=== PATIENT | female | born 1965 | race Caucasian/White ===

== ENCOUNTER 2025-01-17 01:20 | Inpatient (IN) | payer BC ==
[~2025-01-17] VITALS: Ht 154.9 cm; Wt 63.5 kg
[2025-01-17 01:57] LABS: BASO # 0.1 10^3/uL (0.0-0.2); BASO % 0.6 % (0.0-1.0); EOS # 0.0 10^3/uL (0.0-0.5); EOS % 0.1 % (0.0-3.0); LYMPH # 0.7 10^3/uL (1.5-5.0); LYMPH % 9.1 % (24.0-44.0); MONO # 0.8 10^3/uL (0.0-0.8); MONO % 10.3 % (2.0-8.0); NEUTROPHILS # 6.4 10^3/uL (1.5-8.5); NEUTROPHILS % 79.3 % (36.0-66.0); PLATELET COUNT, AUTOMATED 160 10^3/uL (150-450)
[2025-01-17 02:24] LABS: CPK CREATINE PHOSPHOKINASE 757.0 U/L (34-145)
[2025-01-17 02:25] LABS: ALT/SGPT 33.0 U/L (7.0-40); AST/SGOT 101.0 U/L (<34); CALCIUM LEVEL 9.9 MG/DL (8.3-10.6); CARBON DIOXIDE LEVEL 16.0 MMOL/L (20-31); CHLORIDE LEVEL 96.0 MMOL/L (98-107); CK-MB VALUE MASS 10.4 NG/ML (<3.6); CREATININE FOR GFR 0.84 MG/DL (0.55-1.30); GLOMERULAR FILTRATION RATE 79.0 (>45); MAGNESIUM LEVEL 1.2 MG/DL (1.8-2.4); MB/CK RELATIVE INDEX 1.37 (< OR =4); POTASSIUM SERUM 3.6 MMOL/L (3.5-5.1); SODIUM LEVEL 137.0 MMOL/L (136-145)
[2025-01-17] MEDS ORDERED: chlordiazePOXIDE 25 MG CAP PO SCH (02:30)
[2025-01-17] MEDS: MAGNESIUM SULFATE IN WATER 2 GM in IV 1 EA IV STA (03:02)
[2025-01-17] MEDS: OXAZEPAM 10MG CAP PO ONE (03:02)
[2025-01-17] MEDS: NS (Normal Saline) 0.9% 1,000 ML IV ONE (03:03)
[2025-01-17] MEDS: KCL 20MEQ IN D5/NS 1000ML 1,000 ML IV SCH (05:01)
[2025-01-17] MEDS: CIPROFLOXACIN 0.3% OPHTH SOLN 2.5 ML OU ONE (05:21)
[2025-01-17 05:22] LABS: ETHYL ALCOHOL (ETHANOL) < 0.003 % (0.000-0.010); MAGNESIUM LEVEL 1.9 MG/DL (1.8-2.4)
[2025-01-17] MEDS: MAG SULF 1GM/100ML (MAG RUN) 1 GM in IV 1 EA IV ONE (06:11)
[2025-01-17 06:17] LABS: ACETONE/KETONE > 4.50 MMOL/L (0.02-0.27)
[2025-01-17 06:31] LABS: INR 1.17
[2025-01-17] MEDS ORDERED: HOME MED LIST COMPLETE! XX SCH (07:50)
[2025-01-17 08:00] VITALS: BP 89/52; TEMP 97.7; O2SAT 98
[2025-01-17 08:34] LABS: VITAMIN B12 LEVEL 770 PG/ML (211-911)
[2025-01-17] MEDS ORDERED: THIAMINE 100 MG TAB PO SCH (09:00)
[2025-01-17 09:37] LABS: PHOSPHORUS LEVEL 3.4 MG/DL (2.4-5.1)
[2025-01-17 09:42] LABS: CALCIUM LEVEL 8.2 MG/DL (8.3-10.6); CARBON DIOXIDE LEVEL 22 MMOL/L (20-31); CHLORIDE LEVEL 101 MMOL/L (98-107); CREATININE FOR GFR 0.62 MG/DL (0.55-1.30); GLOMERULAR FILTRATION RATE > 90.0 (>45); POTASSIUM SERUM 3.3 MMOL/L (3.5-5.1); SODIUM LEVEL 137 MMOL/L (136-145)
[2025-01-17] MEDS: MULTIVITAMINS/MINERALS THERAP 1 TAB PO SCH (09:55)
[2025-01-17] MEDS: FOLIC ACID 1 MG TAB PO SCH (09:56)
[2025-01-17] MEDS: OXAZEPAM 15MG CAP PO SCH (10:14)
[2025-01-17 10:42] LABS: ANTI-STREPTOLYSIN O QUANT 122.2 IU/ML (<195)
[2025-01-17] MEDS: CIPROFLOXACIN 0.3% OPHTH SOLN 2.5 ML OU SCH (10:42)
[2025-01-17 12:04] VITALS: BP 127/69; TEMP 97.7; O2SAT 100
[2025-01-17 12:15] LABS: C REACTIVE PROTEIN QUANTITATIV 0.84 MG/DL (<1.0); CALCIUM LEVEL 8.5 MG/DL (8.3-10.6); CARBON DIOXIDE LEVEL 21 MMOL/L (20-31); CHLORIDE LEVEL 103 MMOL/L (98-107); CREATININE FOR GFR 0.62 MG/DL (0.55-1.30); GLOMERULAR FILTRATION RATE > 90.0 (>45); MAGNESIUM LEVEL 2.0 MG/DL (1.8-2.4); POTASSIUM SERUM 3.3 MMOL/L (3.5-5.1); SODIUM LEVEL 138 MMOL/L (136-145)
[2025-01-17] MEDS: THIAMINE INJection 500 MG in NS 100 ML IV SCH (12:38)
[2025-01-17] MEDS ORDERED: KCL 10MEQ/100ML SWI (KRUN) 10 MEQ in IV 1 EA IV ONE (14:00)
[2025-01-17 15:01] LABS: ALT/SGPT 26 U/L (7.0-40); AST/SGOT 74 U/L (<34); CALCIUM LEVEL 7.9 MG/DL (8.3-10.6); CARBON DIOXIDE LEVEL 23 MMOL/L (20-31); CHLORIDE LEVEL 104 MMOL/L (98-107); CREATININE FOR GFR 0.53 MG/DL (0.55-1.30); GLOMERULAR FILTRATION RATE > 90.0 (>45); MAGNESIUM LEVEL 1.8 MG/DL (1.8-2.4); POTASSIUM SERUM 3.0 MMOL/L (3.5-5.1); SODIUM LEVEL 140 MMOL/L (136-145)
[2025-01-17 15:28] LABS: KETONE, URINE AUTO RFX 1+ mg/dL (NEGATIVE); MUCUS, URINE RFX SMALL (NEGATIVE); RBC, URINE AUTO RFX 0 /HPF (0-3); SQUAM EPITHELIAL CELL UR AURFX 1 /HPF (0-6); WBC, URINE AUTO RFX 2 /HPF (0-3)
[2025-01-17 15:30] LABS: LEUKOCYTE ESTERASE UR AUTO RFX TRACE (NEGATIVE); NITRITE, URINE AUTO RFX POSITIVE (NEGATIVE)
[2025-01-17] MEDS: LR 1,000 ML IV SCH (15:41)
[2025-01-17 15:44] LABS: AMPHETAMINES LEVEL URINE NEGATIVE (NEGATIVE); BARBITURATES URINE NEGATIVE (NEGATIVE)
[2025-01-17 15:45] LABS: CANNABINOIDS URINE NEGATIVE (NEGATIVE); COCAINE METABOLITE URINE NEGATIVE (NEGATIVE); METHADONE URINE NEGATIVE (NEGATIVE); OPIATES URINE NEGATIVE (NEGATIVE); PHENCYCLIDINE URINE NEGATIVE (NEGATIVE)
[2025-01-17 15:47] LABS: BENZODIAZEPINES URINE POSITIVE (NEGATIVE)
[2025-01-17 17:00] VITALS: BP 121/66; TEMP 98; O2SAT 100
[2025-01-17] MEDS: POTASSIUM CHLORIDE 10% LIQ 20MEQ/15ML UDC PO ONE (17:17)
[2025-01-18 07:29] LABS: PLATELET COUNT, AUTOMATED 115 10^3/uL (150-450)
[2025-01-18 07:43] LABS: ALT/SGPT 28 U/L (7.0-40); AST/SGOT 68 U/L (<34); CALCIUM LEVEL 8.4 MG/DL (8.3-10.6); CARBON DIOXIDE LEVEL 24 MMOL/L (20-31); CHLORIDE LEVEL 109 MMOL/L (98-107); CREATININE FOR GFR 0.50 MG/DL (0.55-1.30); GLOMERULAR FILTRATION RATE > 90.0 (>45); MAGNESIUM LEVEL 1.6 MG/DL (1.8-2.4); POTASSIUM SERUM 3.3 MMOL/L (3.5-5.1); SODIUM LEVEL 144 MMOL/L (136-145)
[2025-01-18 09:43] VITALS: BP 123/68; TEMP 98; O2SAT 95
[2025-01-18 12:00] VITALS: BP 141/71; TEMP 97.9; O2SAT 96
[2025-01-18 16:00] VITALS: BP 146/70; TEMP 98; O2SAT 98
[2025-01-18 20:07] VITALS: BP 135/67; TEMP 98.4; O2SAT 97
[2025-01-19 04:25] VITALS: BP 142/69; TEMP 98.7; O2SAT 96
[2025-01-19 05:33] LABS: PLATELET COUNT, AUTOMATED 131 10^3/uL (150-450)
[2025-01-19 05:58] LABS: ALT/SGPT 26 U/L (7.0-40); AST/SGOT 54 U/L (<34); CALCIUM LEVEL 8.6 MG/DL (8.3-10.6); CARBON DIOXIDE LEVEL 26 MMOL/L (20-31); CHLORIDE LEVEL 108 MMOL/L (98-107); CREATININE FOR GFR 0.48 MG/DL (0.55-1.30); GLOMERULAR FILTRATION RATE > 90.0 (>45); MAGNESIUM LEVEL 1.4 MG/DL (1.8-2.4); POTASSIUM SERUM 3.1 MMOL/L (3.5-5.1); SODIUM LEVEL 142 MMOL/L (136-145)
[2025-01-19] MEDS ORDERED: MAG SULF 1GM/100ML (MAG RUN) 1 GM in IV 1 EA IV SCH (07:20)
[2025-01-19] MEDS: POTASSIUM CHLORIDE 10MEQ SR TABLET PO ONE (07:25)
[2025-01-19] MEDS: MAG SULF 1GM/100ML (MAG RUN) 1 GM in IV 1 EA IV SCH (07:26)
[2025-01-19] MEDS ORDERED: POTASSIUM CHLORIDE 10MEQ SR TABLET PO ONE ×2 (07:30→14:00)
[2025-01-19] MEDS: CEFDINIR 300 MG CAP PO SCH (10:59)
[2025-01-19 20:00] VITALS: BP 152/89; TEMP 98.9; O2SAT 97
[2025-01-20 04:00] VITALS: BP 158/86; TEMP 97.9; O2SAT 98
[2025-01-20 08:00] VITALS: BP 170/93; TEMP 98.3; O2SAT 96
[2025-01-20 08:00] LABS: PLATELET COUNT, AUTOMATED 154 10^3/uL (150-450)
[2025-01-20 08:36] LABS: ALT/SGPT 30 U/L (7.0-40); AST/SGOT 47 U/L (<34); CALCIUM LEVEL 8.5 MG/DL (8.3-10.6); CARBON DIOXIDE LEVEL 25 MMOL/L (20-31); CHLORIDE LEVEL 109 MMOL/L (98-107); CREATININE FOR GFR 0.51 MG/DL (0.55-1.30); GLOMERULAR FILTRATION RATE > 90.0 (>45); MAGNESIUM LEVEL 1.6 MG/DL (1.8-2.4); POTASSIUM SERUM 3.3 MMOL/L (3.5-5.1); SODIUM LEVEL 144 MMOL/L (136-145)
[2025-01-20] MEDS: MULTIVITAMINS/MINERALS THERAP 1 TAB PO SCH (09:11)
[2025-01-20] MEDS: FOLIC ACID 1 MG TAB PO SCH (09:11)
[2025-01-20] MEDS ORDERED: RA M500C PO (09:48)
[2025-01-20] MEDS ORDERED: CEFD1CAP9 PO (09:48)
[2025-01-20] MEDS ORDERED: POTA-151 PO (09:48)
[2025-01-20] MEDS: POTASSIUM CHLORIDE 10MEQ SR TABLET PO ONE (09:50)
[2025-01-20] MEDS ORDERED: FOLI1TAB11 PO (09:51)
[2025-01-20] MEDS ORDERED: ACAM0.05 PO (09:51)
[2025-01-20] MEDS ORDERED: NALT50TA4 PO (09:51)
[2025-01-20] MEDS: MAG SULF 1GM/100ML (MAG RUN) 1 GM in IV 1 EA IV SCH (09:51)
[2025-01-20] MEDS ORDERED: THIA100T7 PO (09:51)
[2025-01-20 10:00] VITALS: BP 141/85
[2025-01-20] MEDS: THIAMINE 100 MG TAB PO SCH (10:44)
== END 2025-01-20 13:41 | disposition home or self-care (01) | DRG 775 ==
LOC: M ED 01:20 → M ED INP 05:37 → M ICU 01-18 09:37
PROVIDERS: ADMIT Internal Medicine; ATTEND Internal Medicine
DX: F10.239 Alcohol dependence with withdrawal, unspecified (principal); G93.41 Metabolic encephalopathy; E87.20 Acidosis, unspecified; E83.42 Hypomagnesemia; E87.6 Hypokalemia; N39.0 Urinary tract infection, site not specified; R44.3 Hallucinations, unspecified; H10.9 Unspecified conjunctivitis